=== PATIENT | male | born 1955 | race Two or more races ===

== ENCOUNTER 2021-01-12 05:44 | Day surgery (SDC) | payer BC, MEDICAID ==
[2021-01-07 15:06] LABS: BASOPHILS % (AUTO) 0.6 % (0-1); EOSINOPHILS # (AUTO) 0.2 X10'3 (0-0.9); LYMPHOCYTES # (AUTO) 1.9 X10'3 (1.1-4.8); LYMPHOCYTES % (AUTO) 23.5 % (21-51); MEAN CORPUSCULAR HEMOGLOBIN 29.5 PG (27.0-31.0); MEAN CORPUSCULAR HGB CONC 33.5 g/dL (33.0-36.5); MEAN PLATELET VOLUME 8.7 FL (7.4-10.4); MONOCYTES # (AUTO) 0.6 X10'3 (0-0.9); MONOCYTES % (AUTO) 7.7 % (2-12); NEUTROPHILS # (AUTO) 5.3 X10'3 (1.8-7.7); NEUTROPHILS % (AUTO) 65.2 % (42-75); PRE OP HEMATOCRIT 46.7 % (42.0-52.0); PRE OP HEMOGLOBIN 15.7 g/dL (14.0-17.9); PRE OP PLATELET COUNT 215 X10'3 (140-440); RED BLOOD COUNT 5.31 X10'6 (4.70-6.10); RED CELL DISTRIBUTION WIDTH 13.6 % (11.5-14.5)
[2021-01-07 15:19] LABS: PRE OP PROTIME 10.4 SECONDS (9.0-12.0)
[2021-01-07 15:21] LABS: ALBUMIN 4.3 G/DL (3.4-5.0); ALBUMIN/GLOBULIN RATIO 1.1 (1.1-1.5); ALKALINE PHOSPHATASE 68 IU/L (46-116); BLOOD UREA NITROGEN 17 MG/DL (7-18); BUN/CREATININE RATIO 19.3 (5.4-32.0); CALCIUM 8.4 MG/DL (8.5-10.1); CHLORIDE 108 MMOL/L (99-107); CREATININE 0.88 MG/DL (0.60-1.10); PRE OP ALT 36 U/L (30-65); PRE OP ANION GAP 11 (8-16); PRE OP AST 22 U/L (10-37); PRE OP BILIRUB, TOTAL 0.5 MG/DL (0.0-1.0); PRE OP GLUCOSE 97 MG/DL (70-104); PRE OP POTASSIUM 4.1 MMOL/L (3.4-5.1); PRE OP SODIUM 144 MMOL/L (135-145); TOTAL CARBON DIOXIDE 25.4 MMOL/L (24-32); TOTAL PROTEIN 8.2 G/DL (6.4-8.2); eGFR 87 ML/MIN
[2021-01-12] VITALS (18 sets, daily range): BP systolic 87–142; BP diastolic 48–97
[~2021-01-12] VITALS: Ht 165.1 cm; Wt 87.5 kg
[~2021-01-12 05:44] MED LIST: NO HOME MEDS; cefazolin/dext.iso 2gm/100ml IV ONE; famotidine 20mg tablet PO ONE; ringers solution, lacted 1,000 ML IV SCH; tranexamic acid 1gm/0.7% sal. 100 ML IV ONE; vancomycin 1,500 MG in NS 300ml IV soln IV ONE
[2021-01-12] MEDS ORDERED: cloNIDine hcl/PF 100mcg/ml inj ONE ×2 (07:17→08:32)
[2021-01-12] MEDS ORDERED: BUPIVAcaine/dex-water/PF 7.5 mg/ml 2ml ampul ONE (07:18)
[2021-01-12] MEDS ORDERED: sevoflurane 250ml liquid IH ONE (07:18)
[2021-01-12] MEDS ORDERED: tetracaine 1% (10mg/ml) pres. free inj. ONE (07:18)
[2021-01-12] MEDS ORDERED: morphine /PF 1mg/ml 10ml inj. ONE (07:20)
[2021-01-12] MEDS ORDERED: MIDAZolam 1 MG/ML 5ML VIAL ONE (07:20)
[2021-01-12] MEDS ORDERED: propofol inj 20 ML IV ONE ×3 (07:46→07:47)
[2021-01-12] MEDS ORDERED: diphenhydrAMINE 50 mg/ml inj ONE (07:47)
[2021-01-12] MEDS ORDERED: proCHLORperazine 10 MG/2 ml inj IV PRN (08:05)
[2021-01-12] MEDS ORDERED: diphenhydrAMINE 50 mg/ml inj IV PRN (08:05)
[2021-01-12] MEDS ORDERED: ondansetron/PF 4mg/2ml inj IV PRN ×3 (08:05→11:05)
[2021-01-12] MEDS ORDERED: naloxone 2mg/2ml inj 2 MG in normal saline 500ml IV soln 500 ML IV PRN (08:05)
[2021-01-12] MEDS ORDERED: meperidine/PF 25mg/ml syringe IV PRN ×3 (08:05)
[2021-01-12] MEDS ORDERED: HYDROmorphone/PF 0.2 MG/ML SYRINGE IV PRN ×2 (08:05)
[2021-01-12] MEDS ORDERED: labetalol 20mg/4ml (5mg/ml) syringe IV PRN (08:05)
[2021-01-12] MEDS ORDERED: ringers solution, lacted 1,000 ML IV SCH (08:05)
[2021-01-12] MEDS ORDERED: hydrALAZINE 20mg/ml inj. IV PRN (08:05)
[2021-01-12] MEDS ORDERED: acetaminophen 1,000mg/100ml IV 100 ML IV PRN (08:05)
[2021-01-12] MEDS ORDERED: ROPIVAcaine 0.5% (5mg/ml) 30ml vial ONE ×2 (08:24→08:33)
[2021-01-12] MEDS ORDERED: ondansetron/PF 4mg/2ml inj ONE (08:24)
[2021-01-12] MEDS ORDERED: dexamethasone sod phosphate 4mg/ml inj. ONE (08:24)
[2021-01-12] MEDS ORDERED: ketorolac trometh. 30mg/ml inj. ONE (08:32)
[2021-01-12] MEDS ORDERED: vancomycin 1,000mg inj ONE (10:12)
[2021-01-12] MEDS ORDERED: HYDROmorphone 1 mg/ml syringe IV PRN (11:05)
[2021-01-12] MEDS ORDERED: acetaminophen 325mg tablet PO PRN (11:05)
[2021-01-12] MEDS ORDERED: magnesium hydroxide 30ml (MOM) UD suspension PO PRN (11:05)
[2021-01-12] MEDS ORDERED: HYDROcodone/acetaminophen 10/325mg tab PO PRN (11:05)
[2021-01-12] MEDS ORDERED: diphenhydrAMINE 25mg capsule PO PRN ×2 (11:05)
[2021-01-12] MEDS ORDERED: bisacodyl 10mg suppository rectal RC PRN (11:05)
--- NOTE | 2021-01-12 11:05 | NUR ---
Received from OR via , accompanied by Anesthesiologist and report given by Anesthesiolgist. PATIENT WAKING UP, NO S/S OF PAIN, V/S WNL, SCD ON, 18G TO RUE, drsg to LEFT KNEE-CDI .SENSATION T10, F/C DRAINING CLEAR YELLOW URINE
--- NOTE | 2021-01-12 11:22 | NUR ---
RECEIVED REPORT FROM RECOVERY NURSE, PT GOING TO [id number]
--- NOTE | 2021-01-12 12:05 | NUR ---
PATIENT A&OX4, DENIES PAIN, V/S WNL, SCD ON, 18G TO LUE, drsg TO LEFT KNEE CDI WITH FRESH POWDER PACK. F/C DRAINING CLEAR YELLOW URINE. PATIENT TAKEN TO 4023B WITH ALL BELONGINGS AND HOOKED UP TO MONITORS IN ROOM AND REPORT GIVEN TO RN WHO HAS TAKEN OVER PATIENT CARE
--- NOTE | 2021-01-12 12:28 | NUR ---
PT ARRIVED ON FLOOR AT 1210
[2021-01-12] MEDS: potassium Cl 20mEq in NS 1,000 ML IV SCH (14:15)
[2021-01-12] MEDS: ceFAZolin/D5W- 1GM premix 50 ML IV SCH (15:52)
--- NOTE | 2021-01-12 18:35 | NUR ---
Problems reprioritized. Patient report given, questions answered & plan of care reviewed with ZI ARRIOLA.
[2021-01-12] MEDS ORDERED: vancomycin/NS 1 GM ADD-VANTAGE 250 ML IV SCH (20:00)
[2021-01-12] MEDS ORDERED: aspirin 81mg tab.chew PO ONE (20:00)
[2021-01-12] MEDS ORDERED: sennosides 8.6mg tablet PO SCH (21:00)
[2021-01-13] MEDS: ceFAZolin/D5W- 1GM premix 50 ML IV SCH (00:23)
[2021-01-13 02:00] VITALS: BP 92/62
[2021-01-13] MEDS: potassium Cl 20mEq in NS 1,000 ML IV SCH ×3 (03:05→11:05)
[2021-01-13] MEDS: HYDROcodone/acetaminophen 10/325mg tab PO PRN ×2 (05:37→15:19)
[2021-01-13 06:00] VITALS: BP 103/59
[2021-01-13 06:00] LABS: BASOPHILS % (AUTO) 0 % (0-1); EOSINOPHILS % (AUTO) 0 % (0-6); HEMOGLOBIN 12.3 g/dl (14.0-17.9); LYMPHOCYTES % (AUTO) 6.3 % (21-51); MEAN CORPUSCULAR HEMOGLOBIN 29.7 PG (27.0-31.0); MEAN CORPUSCULAR HGB CONC 33.3 g/dL (33.0-36.5); MEAN CORPUSCULAR VOLUME 89.2 FL (78-98); MEAN PLATELET VOLUME 9.3 FL (7.4-10.4); MONOCYTES # (AUTO) 1.1 X10'3 (0-0.9); MONOCYTES % (AUTO) 6.7 % (2-12); NEUTROPHILS # (AUTO) 14.5 X10'3 (1.8-7.7); PLATELET COUNT 165 X10'3 (140-440); RED BLOOD COUNT 4.15 X10'6 (4.70-6.10); RED CELL DISTRIBUTION WIDTH 13.4 % (11.5-14.5); WHITE BLOOD COUNT 16.7 X10'3 (4.5-11.0)
--- NOTE | 2021-01-13 06:11 | NUR ---
Patient in room [facility]TH[facility] 4023B. I have received report from ZI ARRIOLA and had the opportunity to ask questions and assume patient care.
[2021-01-13 06:27] LABS: ALANINE AMINOTRANSFERASE 20 U/L (12-78); ALBUMIN 2.9 G/DL (3.4-5.0); ALKALINE PHOSPHATASE 58 IU/L (46-116); ANION GAP 8 (8-16); ASPARTATE AMINO TRANSFERASE 13 U/L (10-37); BILIRUBIN,TOTAL 0.4 MG/DL (0.1-1.0); BLOOD UREA NITROGEN 18 MG/DL (7-18); BUN/CREATININE RATIO 19.1 (5.4-32.0); CALCIUM 7.4 MG/DL (8.5-10.1); CHLORIDE 110 MMOL/L (99-107); CREATININE 0.94 MG/DL (0.60-1.10); GLUCOSE 127 MG/DL (70-104); POTASSIUM 4.5 MMOL/L (3.5-5.1); SODIUM 142 MMOL/L (135-145); TOTAL CARBON DIOXIDE 23.9 MMOL/L (24-32); TOTAL PROTEIN 5.9 G/DL (6.4-8.2); eGFR 81 ML/MIN
[2021-01-13 10:00] VITALS: BP 118/64
[2021-01-13] MEDS ORDERED: HYDR-3972 PO (14:00)
--- NOTE | 2021-01-13 14:40 | NUR ---
Joint surgery Consult: Pt s/p L knee surgery this admit. Pt seen by DAVY for written/verbal high protein ed w/ RD contact information provided. Pt reports good appetite w/ no food preferences at this time. Addendum: 01/13/21 at [address] Amended: Links added.
[2021-01-13] MEDS ORDERED: ASPI81TA52 PO (15:07)
--- NOTE | 2021-01-13 16:10 | NUR ---
D/C INSTRUCTIONS GIVEN, QUESTIONS ANSWERED. BELONGINGS GATHERED BY AND SENT WITH PT. IV D/C'D, CANNULA INTACT, NO COMPLICATIONS. D/C'D PT IN STABLE CONDITION TO HOME IN PRIVATE VEHICLE ACCOMPANIED BY . PT LEFT FLOOR AT 1535
== END 2021-01-13 15:50 | disposition home or self-care (01) ==
LOC: PAS 05:44 → ORTHO 4S 11:14 → PAS 01-13 15:50
PROVIDERS: ATTEND Orthopaedic Surgery
DX: M17.12 Unilateral primary osteoarthritis, left knee (principal); G89.18 Other acute postprocedural pain; Z20.822 Contact with and (suspected) exposure to COVID-19; Z79.899 Other long term (current) drug therapy; Z87.891 Personal history of nicotine dependence; Z79.01 Long term (current) use of anticoagulants
CPT/HCPCS: 27447; 36415; 64447; 76942; 80053; 82948; 85025; 85610; 85730; 86885; 86900; 86901; 86920; 87081; 97110; 97116; 97161; C1713; C1758; C1776; J0690; J0735; J1100; J1200; J1885; J2250; J2270; J2405; J2704; J3370; J3480; J3490; J7040; J7120; U0003; U0005; Z7506; Z7508; Z7512; A4618; A6455; A7000; A9272; G0378; J2795